=== PATIENT | female | born 1985 | race Two or more races ===

== ENCOUNTER 2024-01-05 19:45 | Emergency (ER) | payer MEDICAID, OTHER ==
[~2024-01-05] VITALS: Ht 165.1 cm; Wt 81.8 kg
[2024-01-05] MEDS: fentaNYL CITRATE 100 MCG/2 ML VL IV ONE (20:25)
[2024-01-05 21:15] VITALS: PULSE 101; RESP 17; O2SAT 100
[2024-01-05 21:28] VITALS: TEMP 98.8
[2024-01-05] MEDS: PROPOFOL 10 MG/ML 20 ML IV ONE (21:49)
[2024-01-05] MEDS: ONDANSETRON HCL 4 MG/2 ML VIAL IV ONE (21:58)
[2024-01-05] MEDS: MORPHINE SULFATE 4 MG/ML SYR/VIAL IV ONE ×2 (21:59→22:15)
[2024-01-05] MEDS ORDERED: HYDR-4902 PO (22:22)
[2024-01-05] MEDS ORDERED: ONDA-155 PO (22:22)
[2024-01-05 23:21] VITALS: BP 131/82; PULSE 70; RESP 14; O2SAT 100
[2024-01-06] MEDS: OXYCODONE W/ ACETAMINOPHEN 5/325MG TABLET PO ONE
[2024-01-06] MEDS ORDERED: PERCOT PO (18:56)
[2024-01-06] MEDS ORDERED: IBUP-1455 PO (18:56)
== END 2024-01-06 00:20 | disposition home or self-care (01) ==
LOC: EDBD 19:45 → ER 19:45
DX: S82.891A Other fracture of right lower leg, initial encounter for closed fracture (principal); W18.39XA Other fall on same level, initial encounter; Y93.51 Activity, roller skating (inline) and skateboarding; Y92.89 Other specified places as the place of occurrence of the external cause; Y99.8 Other external cause status
CPT/HCPCS: 27788; 73600; 96374; 96375; 99152; 99285; J2270; J2405; J2704; J3010; 27818